=== PATIENT | male | born 1945 | race Caucasian/White ===

== ENCOUNTER 2016-07-13 | Outpatient (CLI) | payer SELFPAY | END 2016-07-13 10:36 | disposition EMS.NT ==

== ENCOUNTER 2019-05-05 10:10 | Outpatient (CLI) | payer MEDICARE, BC | END 2019-05-05 10:11 | disposition critical access hospital (66) | LOC: EMS 10:10 | PROVIDERS: ATTEND Surgery | DX: R40.20 Unspecified coma (principal) | CPT/HCPCS: A0425; A0427 ==

== ENCOUNTER 2019-05-05 10:26 | Emergency (ER) | payer MEDICARE, BC ==
[2019-05-05] MEDS ORDERED: SODIUM CHLORIDE 0.9% 1,000 ML IV ONE (10:34)
--- NOTE | 2019-05-05 10:35 | ED Physician Documentation ---
PD HPI SYNCOPE - Stated complaint Stated Complaint: ALOC - History obtained from History obtained from: Patient, Family, EMS - History of Present Illness Witnessed: Witnessed ( says he was sitting at table awaiting breakfast. Had not eaten nor drank fluids as yet. He then was not talking with his , so she turned to look at him and she noted pallor, and not talking. he tried to stir him but not responding. EMS called. says he started to respond some prior to their arrival. EMS found patient pale, hypotension and slow heart rate, that improved as they laid him down. He awoke fully enroute and is denying chest, abd pains nor headache.) Timing - onset: How many minutes ago (30), Today Duration: Minutes (improving as EMS laid him flatter, but noted his BP was low at 50s systolic initially and HR 45 initially.) Preceding symptoms: Light headed. No: Headache, Chest pain, Palpitations, Abdominal pain Associated symptoms: No: Seizure, Incontinant of urine, Headache, Dyspnea, Nausea / vomiting Contributing factors: No: Noxious stimulae, Just stood up (was sitting at table waiting for breakfast.) Injury occurred: No: Fell Similar symptoms before: No diagnosis ( says he has had 4 of these episodes the past several months. Usually just for few seconds No prior residual lightheaded nor dyspnea.) Recently seen: Emergency Dept. No: Clinic (no recent change in meds.) Review of Systems Constitutional: denies: Fever, Chills Nose: denies: Rhinorrhea / runny nose, Congestion Throat: reports: Sore throat Respiratory: denies: Cough GI: denies: Abdominal Pain, Nausea, Vomiting, Diarrhea : denies: Dysuria Musculoskeletal: denies: Neck pain, Back pain PD PAST MEDICAL HISTORY - Past Medical History Cardiovascular: Hypertension, High cholesterol Respiratory: None Neuro: None Endocrine/Autoimmune: None Psych: Anxiety - Present Medications Home Medications: Ambulatory Orders Medication Instructions Recorded Confirmed Acetaminophen [Tylenol Extra 500 mg ORAL QID PRN 05/05/19 05/05/19 Strength] Amitriptyline HCl 50 mg PO DAILY PM 05/05/19 05/05/19 Aspirin 81 mg PO DAILY 05/05/19 05/05/19 Atorvastatin Calcium 20 mg PO DAILY PM 05/05/19 05/05/19 Carbamazepine [Carbatrol] 200 mg ORAL BID 05/05/19 05/05/19 Carvedilol [Coreg] 25 mg PO BID 05/05/19 05/05/19 Cholecalciferol (Vitamin D3) 2,000 unit PO DAILY 05/05/19 05/05/19 [Vitamin D3] Citalopram Hydrobromide [Celexa] 20 mg ORAL DAILY 05/05/19 05/05/19 Doxazosin Mesylate 8 mg PO DAILY PM 05/05/19 05/05/19 Fenofibrate Nanocrystallized 145 mg PO DAILY PM 05/05/19 05/05/19 [Fenofibrate] Fluticasone/Salmeterol [Advair 1 inhaler ORAL BID 05/05/19 05/05/19 250-50 Diskus] Glipizide [Glipizide ER] 5 mg PO DAILY 05/05/19 05/05/19 Indomethacin 50 mg ORAL DAILY 05/05/19 05/05/19 Loratadine [Claritin] 10 mg PO DAILY 05/05/19 05/05/19 Losartan [Cozaar] 50 mg ORAL BID 05/05/19 05/05/19 Nitroglycerin [Nitroglycerin Patch 1 patch TOP DAILY 05/05/19 05/05/19 (0.4MG/HR)] Nitroglycerin [Nitrostat] 0.4 mg SL Q5MIN PRN MDD 3 05/05/19 05/05/19 amLODIPine [Norvasc] 5 mg PO DAILY 05/05/19 05/05/19 hydrALAZINE [Apresoline] 25 mg ORAL BID 05/05/19 05/05/19 hydroCHLOROthiazide 25 mg PO DAILY 05/05/19 05/05/19 [Hydrochlorothiazide] metFORMIN [Glucophage] 1,000 mg ORAL BID 05/05/19 05/05/19 - Allergies Allergies/Adverse Reactions: Allergies Allergy/AdvReac Type Severity Reaction Status Date / Time No Known Drug Allergies Allergy Verified 05/05/19 10:39 - Living Situation Living Situation: reports: With spouse/s.o. Living Arrangement: reports: At home - Social History Does the pt drink ETOH?: No Does the pt have substance abuse?: No - Family History Family history: denies: Sudden PD ED PE NORMAL - Vitals Vital signs reviewed: Yes - General General: Alert and oriented X 3, No acute distress, Well developed/nourished - HEENT HEENT: Atraumatic, Ears normal, Moist mucous membranes, Pharynx benign - Neck Neck: Supple, no meningeal sign, No adenopathy, No JVD - Cardiac Cardiac: RRR, No murmur - Respiratory Respiratory: Clear bilaterally - Abdomen Abdomen: Soft, Non tender - Back Back: No CVA TTP - Derm Derm: Normal color, Warm and dry - Extremities Extremities: No tenderness to palpate, Normal ROM s pain, No edema, No calf tenderness / cord - Neuro Neuro: Alert and oriented X 3, No motor deficit, Normal speech Results - Vitals Vitals: Vital Signs - 24 hr 05/05/19 05/05/19 05/05/19 10:32 10:42 11:26 Temperature 36.1 C L 36.4 C L Heart Rate 74 72 93 Heart Rate [ Sitting] Heart Rate [ Standing] Heart Rate [ Supine] Respiratory 22 24 14 Rate Blood Pressure 113/78 117/78 106/95 H Blood Pressure [Sitting] Blood Pressure [Standing] Blood Pressure [Supine] O2 Saturation 95 96 95 05/05/19 05/05/19 11:55 13:30 Temperature Heart Rate 84 Heart Rate [ 79 Sitting] Heart Rate [ 81 Standing] Heart Rate [ 73 Supine] Respiratory 24 Rate Blood Pressure 129/66 Blood Pressure 113/64 [Sitting] Blood Pressure 110/50 L [Standing] Blood Pressure 117/65 [Supine] O2 Saturation 97 Oxygen O2 Source Room air - EKG (time done) 10:38 Rate: Rate (enter#) (73) Rhythm: NSR [place]: Normal Intervals: Normal PA QRS: Normal Ischemia: Normal ST segments. No: ST elevation c/w ischemia, ST depression Computer interpretation: Agree with computer - Labs Labs: Laboratory Tests 05/05/19 05/05/19 05/05/19 10:36 10:36 10:36 WBC 5.9 RBC 3.53 L Hgb 11.3 L Hct 33.9 L MCV 96.0 H MCH 32.0 H MCHC 33.3 RDW 13.2 Plt Count 235 MPV 9.1 Neut # (Auto) 4.1 Lymph # (Auto) 1.3 L [place] # (Auto) 0.4 Eos # (Auto) 0.1 Baso # (Auto) 0.0 Absolute Nucleated RBC 0.00 Nucleated RBC % 0.0 Sodium 134 L Potassium 3.8 Chloride 95 L Carbon Dioxide 31 Anion Gap 8.0 BUN 15 Creatinine 0.7 Estimated GFR (MDRD) 111 Glucose 141 H Lactic Acid Calcium 8.9 Magnesium 1.5 L Total Bilirubin 0.7 AST 24 ALT 19 Alkaline Phosphatase 32 L Troponin I High Sens 2.8 B-Natriuretic Peptide Total Protein 6.1 L Albumin 3.7 Globulin 2.4 Albumin/Globulin Ratio 1.5 Lipase 24 05/05/19 05/05/19 10:36 11:01 WBC RBC Hgb Hct MCV MCH MCHC RDW Plt Count MPV Neut # (Auto) Lymph # (Auto) [place] # (Auto) Eos # (Auto) Baso # (Auto) Absolute Nucleated RBC Nucleated RBC % Sodium Potassium Chloride Carbon Dioxide Anion Gap BUN Creatinine Estimated GFR (MDRD) Glucose Lactic Acid 1.4 Calcium Magnesium Total Bilirubin AST ALT Alkaline Phosphatase Troponin I High Sens B-Natriuretic Peptide 43 Total Protein Albumin Globulin Albumin/Globulin Ratio Lipase PD MEDICAL DECISION MAKING - ED course Complexity details: reviewed results (seems possibly vasovagal. Does not seem very dehydrated, though says he does not drink much fluids.), re-evaluated patient (has remained awake and conversant. Discussed normal labs/ECG, and potential home vs. OBS. He prefers going home. ), considered differential, d/w patient, d/w family Departure - Departure Disposition: 01 Home, Self Care Clinical Impression: Transient hypotension Episode of syncope Qualifiers: Syncope type: unspecified Qualified Code(s): R55 - Syncope and collapse Condition: Stable Record reviewed to determine appropriate education?: Yes Instructions: ED Fainting Unkn Cause Comments: Stay well-hydrated. Continue usual medications. I would suggest having some glass of water or juice when you first wake up until you get breakfast. There is suggestion since your fainting episodes have seemed to occur same time a day in the morning. Otherwise follow-up with your primary care. They might consider having you wear a heart monitor to see if you have irregular heart beats or rhythms periodically. Return if repeat episodes over the next couple of days or other symptoms develop. Discharge Date/Time: 05/05/19 13:46
[2019-05-05 10:43] LABS: BASOPHILS % (AUTO) 0.3 %; EOSINOPHILS # (AUTO) 0.1 10^3/uL (0.0-0.7); EOSINOPHILS % (AUTO) 1.2 %; HGB - HEMOGLOBIN 11.3 g/dL (14.0-18.0); LYMPHOCYTES # (AUTO) 1.3 10^3/uL (1.5-3.5); LYMPHOCYTES % (AUTO) 21.5 %; MEAN CORPUSCULAR HGB CONC 33.3 g/dL (32.0-36.0); MEAN PLATELET VOLUME 9.1 fL (7.4-11.4); MONOCYTES # (AUTO) 0.4 10^3/uL (0.0-1.0); MONOCYTES % (AUTO) 7.4 %; NEUTROPHILS # (AUTO) 4.1 10^3/uL (1.5-6.6); NEUTROPHILS % (AUTO) 69.3 %; PLT - PLATELET COUNT 235 10^3/uL (130-450); RED BLOOD COUNT 3.53 10^6/uL (4.70-6.10); RED CELL DISTRIBUTION WIDTH 13.2 % (12.0-15.0); WHITE BLOOD COUNT 5.9 x10^3/uL (4.8-10.8)
[2019-05-05 11:04] LABS: ALBUMIN 3.7 g/dL (3.2-5.5); ALBUMIN/GLOBULIN RATIO 1.5 (1.0-2.2); BILIRUBIN,TOTAL 0.7 mg/dL (0.2-1.0); CALCIUM 8.9 mg/dL (8.5-10.3); CREATININE 0.7 mg/dL (0.6-1.2); MAGNESIUM 1.5 mg/dL (1.7-2.8); TOTAL PROTEIN 6.1 g/dL (6.7-8.2)
--- NOTE | 2019-05-05 11:22 | XRAY Report ---
Reason: syncope Procedure Date: 05/05/2019 Accession Number: [id number] / [id number] Procedure: XR - Chest 1 View X-Ray CPT Code: 98586 Final Report FULL RESULT: EXAM: CHEST RADIOGRAPHY EXAM DATE: 05/05/2019 10:57 AM. CLINICAL HISTORY: Syncope. COMPARISON: None available. TECHNIQUE: 1 view. FINDINGS: Lungs/Pleura: There are low lung volumes with mild bibasilar atelectasis and central bronchovascular crowding. No pneumothorax or large pleural effusion evident. Mediastinum: The cardiac silhouette is mostly obscured. There is atherosclerotic calcification in the aortic arch. Other: Sternal wires are present. Surgical clips in the right upper abdomen. IMPRESSION: Low lung volumes, no acute infiltrate or consolidation evident. RADIA
[2019-05-05 13:35] VITALS: BP 129/66
== END 2019-05-05 13:46 | disposition home or self-care (01) ==
LOC: EDUNIT# → ED 10:26
DX: I95.89 Other hypotension (principal); R55 Syncope and collapse; I10 Essential (primary) hypertension; Z79.82 Long term (current) use of aspirin
CPT/HCPCS: 36415; 71045; 80053; 83605; 83690; 83735; 83880; 84484; 85025; 93005; 96360; 99284

== ENCOUNTER 2019-07-21 22:38 | Outpatient (CLI) | payer MEDICARE, BC | END 2019-07-21 23:59 | disposition critical access hospital (66) | LOC: EMS 22:38 | PROVIDERS: ATTEND Surgery | DX: R06.02 Shortness of breath (principal); R47.9 Unspecified speech disturbances; R00.0 Tachycardia, unspecified | CPT/HCPCS: A0425; A0427 ==

== ENCOUNTER 2019-07-21 22:50 | Emergency (ER) | payer MEDICARE, BC ==
[2019-07-22 01:12] LABS: BASOPHILS % (AUTO) 0.2 %; HGB - HEMOGLOBIN 12.1 g/dL (14.0-18.0); LYMPHOCYTES # (AUTO) 0.7 10^3/uL (1.5-3.5); MEAN CORPUSCULAR HEMOGLOBIN 33.3 pg (27.0-31.0); MEAN CORPUSCULAR HGB CONC 34.5 g/dL (32.0-36.0); MEAN CORPUSCULAR VOLUME 96.7 fL (80.0-94.0); MEAN PLATELET VOLUME 8.9 fL (7.4-11.4); MONOCYTES # (AUTO) 0.5 10^3/uL (0.0-1.0); MONOCYTES % (AUTO) 4.7 %; NEUTROPHILS # (AUTO) 9.7 10^3/uL (1.5-6.6); NEUTROPHILS % (AUTO) 88.6 %; PLT - PLATELET COUNT 348 10^3/uL (130-450); RED BLOOD COUNT 3.63 10^6/uL (4.70-6.10); RED CELL DISTRIBUTION WIDTH 12.2 % (12.0-15.0)
[2019-07-22 01:25] LABS: ALBUMIN 3.8 g/dL (3.2-5.5); ALBUMIN/GLOBULIN RATIO 1.7 (1.0-2.2); BILIRUBIN,TOTAL 0.8 mg/dL (0.2-1.0); CREATININE 0.5 mg/dL (0.6-1.2); TOTAL PROTEIN 6.1 g/dL (6.7-8.2)
--- NOTE | 2019-07-22 02:37 | ED Physician Documentation ---
History of Present Illness - Stated complaint Stated Complaint: LETHARGIC - Chief complaint Chief Complaint: Resp - History obtained from History obtained from: Family (spouse) - History of Present Illness Timing: How many days ago (3-4) Improved by: improved after fluids and repletion of electrolye abnormalities inpt. IH Worsened by: no apparent exacerbating factors - Additonal information Additional information: d/c from inpatient [facility]H yesterday, was primarily there for AMS which improved after correction of electrolyte abnormalities including hyponatremia and hypokalemia. BIBA tonight for decreasing responsiveness. also says he has been drooling. she also says he had been c/o urge to urinate without significant UO (earlier today). patient had neck surgery last month, has not had any prescription pain medication for at least 2 weeks Review of Systems Unable to obtain: AMS (limited to information provided by ) Constitutional: denies: Fever Respiratory: reports: Cough. denies: Dyspnea : reports: Unable to Void (possibly, per ) PD PAST MEDICAL HISTORY - Past Medical History Past Medical History: Yes Cardiovascular: Hypertension, High cholesterol Respiratory: None Neuro: None Endocrine/Autoimmune: None GI: GERD : Benign prostate hypertrophy HEENT: None Psych: Anxiety Musculoskeletal: Osteoarthritis - Past Surgical History Past Surgical History: Yes General: Cholecystectomy Ortho: Knee replacement, Spine surgery Cardiovascular: CABG, Cardiac catheterization Derm: Skin cancer surgery - Present Medications Home Medications: Ambulatory Orders Medication Instructions Recorded Confirmed Acetaminophen [Tylenol Extra 500 mg ORAL QID PRN 05/05/19 05/05/19 Strength] Amitriptyline HCl 50 mg PO DAILY PM 05/05/19 05/05/19 Aspirin 81 mg PO DAILY 05/05/19 05/05/19 Atorvastatin Calcium 20 mg PO DAILY PM 05/05/19 05/05/19 Carvedilol [Coreg] 25 mg PO BID 05/05/19 05/05/19 Cholecalciferol (Vitamin D3) 2,000 unit PO DAILY 05/05/19 05/05/19 [Vitamin D3] Citalopram Hydrobromide [Celexa] 20 mg ORAL DAILY 05/05/19 05/05/19 Doxazosin Mesylate 8 mg PO DAILY PM 05/05/19 05/05/19 Fenofibrate Nanocrystallized 145 mg PO DAILY PM 05/05/19 05/05/19 [Fenofibrate] Fluticasone/Salmeterol [Advair 1 inhaler ORAL BID 05/05/19 05/05/19 250-50 Diskus] Glipizide [Glipizide ER] 5 mg PO DAILY 05/05/19 05/05/19 Indomethacin 50 mg ORAL DAILY 05/05/19 05/05/19 Loratadine [Claritin] 10 mg PO DAILY 05/05/19 05/05/19 Losartan [Cozaar] 50 mg ORAL BID 05/05/19 05/05/19 Nitroglycerin [Nitroglycerin Patch 1 patch TOP DAILY 05/05/19 05/05/19 (0.4MG/HR)] Nitroglycerin [Nitrostat] 0.4 mg SL Q5MIN PRN MDD 3 05/05/19 05/05/19 amLODIPine [Norvasc] 5 mg PO DAILY 05/05/19 05/05/19 carBAMazepine [Carbatrol] 200 mg ORAL BID 05/05/19 05/05/19 hydrALAZINE [Apresoline] 25 mg ORAL BID 05/05/19 05/05/19 hydroCHLOROthiazide 25 mg PO DAILY 05/05/19 05/05/19 [Hydrochlorothiazide] metFORMIN [Glucophage] 1,000 mg ORAL BID 05/05/19 05/05/19 - Allergies Allergies/Adverse Reactions: Allergies Allergy/AdvReac Type Severity Reaction Status Date / Time No Known Drug Allergies Allergy Verified 07/23/19 15:02 - Social History Does the pt smoke?: No Smoking Status: Never smoker Does the pt drink ETOH?: No Does the pt have substance abuse?: No - Immunizations Immunizations are current?: Yes PD ED PE NORMAL - Vitals Vital signs reviewed: Yes - General General: No acute distress, Well developed/nourished, Other (sleeping, drowsy, awakens briefly to repeated verbal with tactile stimulus) - HEENT HEENT: Other (tacky/pasty mucous membranes) - Neck Neck: Supple, no meningeal sign - Cardiac Cardiac: RRR, No murmur - Respiratory Respiratory: No respiratory distress, Clear bilaterally - Abdomen Abdomen: Normal bowel sounds, Soft, Non tender, Non distended - Derm Derm: Normal color, Warm and dry - Neuro Eye Opening: To Voice Motor: Obeys Commands Verbal: Confused GCS Score: 13 - Free text exam Free text exam: old anterior chest wall echymosis ( indicates this has been since neck surgery last month) Results - Vitals Vitals: Oxygen O2 Source Room air Oxygen Flow Rate 2 - Labs Labs: Laboratory Tests 07/22/19 07/22/19 07/22/19 01:06 01:06 03:30 WBC 11.0 H RBC 3.63 L Hgb 12.1 L Hct 35.1 L MCV 96.7 H MCH 33.3 H MCHC 34.5 RDW 12.2 Plt Count 348 MPV 8.9 Neut # (Auto) 9.7 H Lymph # (Auto) 0.7 L [place] # (Auto) 0.5 Eos # (Auto) 0.0 Baso # (Auto) 0.0 Absolute Nucleated RBC 0.00 Nucleated RBC % 0.0 Sodium 134 L Potassium 3.7 Chloride 87 L Carbon Dioxide 36 H Anion Gap 11.0 BUN 29 H Creatinine 0.5 L Estimated GFR (MDRD) 163 Glucose 195 H Calcium 9.0 Total Bilirubin 0.8 AST 39 ALT 36 Alkaline Phosphatase 43 Total Protein 6.1 L Albumin 3.8 Globulin 2.3 Albumin/Globulin Ratio 1.7 Lipase 53 H Urine Color YELLOW Urine Clarity CLEAR Urine pH 6.0 Ur Specific [place] >=1.030 H Urine Protein 100 H Urine Glucose (UA) 250 H Urine Ketones NEGATIVE Urine Occult Blood NEGATIVE Urine Nitrite NEGATIVE Urine Bilirubin NEGATIVE Urine Urobilinogen 1 (NORMAL) Ur Leukocyte Esterase NEGATIVE Urine RBC None Seen Urine WBC 0-3 Ur Squamous Epith Cells NONE SEEN Urine Bacteria Rare Urine Casts 6-10 Hyaline Casts Urine Mucus Marked Strands Ur Microscopic Review INDICATED Urine Culture Comments NOT INDICATED - Rads (name of study) CT head Radiology: Prelim report reviewed, See rad report cxr Radiology: Prelim report reviewed, See rad report PD MEDICAL DECISION MAKING - ED course Complexity details: reviewed old records, reviewed results, re-evaluated patient, considered differential, d/w family ED course: discharge summary from faxed and reviewed. no significant findings on tonights testing including bladder scan (not in urinary retention, and has urine in bladder, sample obtained by I+O cath to avoid contamination), CT head, cxr, and blood tests. he was rehydrated with 1L NS via IV and had moist mucous membranes on reevaluation. he was mildly hypoxic on room air, but this improved with albuterol neb (from 86% to 94% room air). additionally, on reevaluation prior to discharge, says she feels comfortable taking him home, indicates he is closer to baseline mental state. he did become more awake and alert late in stay, and with firm instruction, he followed commands to transfer from stretcher to wheelchair. Departure - Departure Disposition: 01 Home, Self Care Clinical Impression: Altered mental status Condition: Good Instructions: ED Altered Loc Follow-Up: Sreedhar Albarado MD [Primary Care Provider] - Discharge Date/Time: 07/22/19 06:09
--- NOTE | 2019-07-22 03:31 | CT Report ---
Reason: AMS Procedure Date: 07/22/2019 Accession Number: [id number] / [id number] Procedure: CT - HEAD WO CPT Code: Final Report FULL RESULT: EXAM: CT HEAD EXAM DATE: 07/22/2019 03:12 AM. CLINICAL HISTORY: Altered mental status. COMPARISON: None. TECHNIQUE: Multiaxial CT images were obtained from the foramen magnum to the vertex. Reformats: Sagittal and coronal. IV contrast: None. In accordance with CT protocol optimization, one or more of the following dose reduction techniques were utilized for this exam: automated exposure control, adjustment of mA and/or KV based on patient size, or use of iterative reconstructive technique. FINDINGS: Parenchyma: No intraparenchymal hemorrhage. No evidence of mass, midline shift, or CT findings of infarction. Salazar-white differentiation is distinct. There is mild chronic microvascular change in the deep white matter. Extraaxial Spaces: There is mild age appropriate generalized cerebral volume loss. No subdural or epidural collections identified. Ventricles: No hydrocephalus. Sinuses and Orbits: Imaged paranasal sinuses, orbits, and mastoids show no significant abnormality. Bones: No evidence of fracture or calvarial defect. Other: None. IMPRESSION: 1. No acute intracranial abnormality. 2. No intracranial mass, mass-effect, or hydrocephalus. 3. Age-appropriate senescent changes. RADIA
--- NOTE | 2019-07-22 03:32 | XRAY Report ---
Reason: dyspnea Procedure Date: 07/22/2019 Accession Number: [id number] / [id number] Procedure: XR - Chest 1 View X-Ray CPT Code: 74309 Final Report FULL RESULT: EXAM: CHEST RADIOGRAPHY EXAM DATE: 07/22/2019 03:15 AM. CLINICAL HISTORY: Dyspnea. COMPARISON: CHEST 1 VIEW 05/05/2019 10:39 AM. TECHNIQUE: 1 view. FINDINGS: Lungs/Pleura: Low lung volumes. No focal infiltrate, effusion, or pneumothorax. Mediastinum: Stable postoperative changes. Other: None. IMPRESSION: Low lung volumes. No evidence of acute cardiopulmonary disease. RADIA
[2019-07-22 03:41] LABS: GLUCOSE, URINE (UA) 250 mg/dL (NEGATIVE); KETONES,URINE (UA) NEGATIVE (NEGATIVE); LEUKOCYTE ESTERASE, URINE NEGATIVE (NEGATIVE); NITRITE,URINE NEGATIVE (NEGATIVE); OCCULT BLOOD,URINE NEGATIVE (NEGATIVE); PROTEIN,URINE 100 mg/dL (NEGATIVE); UROBILINOGEN,URINE 1 (NORMAL) E.U./dL (NORMAL)
[2019-07-22 03:45] LABS: BILIRUBIN,URINE NEGATIVE (NEGATIVE); CLARITY,URINE CLEAR (CLEAR); ICTOTEST,URINE NEGATIVE
[2019-07-22] MEDS ORDERED: SODIUM CHLORIDE 0.9% 1,000 ML IV STA (03:48)
[2019-07-22 03:49] LABS: BACTERIA,URINE Rare /HPF (None Seen); CASTS, URINE 6-10 Hyaline Casts /LPF; MUCUS,URINE Marked Strands; RBC,URINE None Seen /HPF (0-5); SQUAMOUS EPITHELIAL CELL,UR NONE SEEN (<= Few)
[2019-07-22] MEDS ORDERED: ALBUTEROL NEB 2.5 MG/3 ML INH STA (05:05)
[2019-07-22 05:42] VITALS: BP 129/74
== END 2019-07-22 06:09 | disposition home or self-care (01) ==
LOC: EDUNIT# → ED 22:50
DX: R41.82 Altered mental status, unspecified (principal); I10 Essential (primary) hypertension
CPT/HCPCS: 36415; 51798; 70450; 71045; 80053; 81001; 81003; 83690; 85025; 87086; 94640; 96360; 99285

== ENCOUNTER 2019-07-23 14:33 | Outpatient (CLI) | payer MEDICARE, BC | END 2019-07-23 14:34 | disposition critical access hospital (66) | LOC: EMS 14:33 | PROVIDERS: ATTEND Surgery | DX: R41.82 Altered mental status, unspecified (principal); R47.9 Unspecified speech disturbances | CPT/HCPCS: A0425; A0429 ==

== ENCOUNTER 2019-07-23 14:50 | Emergency (ER) | payer MEDICARE, BC ==
--- NOTE | 2019-07-23 15:50 | ED Physician Documentation ---
History of Present Illness - Stated complaint Stated Complaint: DIFFICULTY SPEAKING - Chief complaint Chief Complaint: Neuro - History obtained from History obtained from: Family - History of Present Illness Timing: How many days ago (5) - Additonal information Additional information: Patient comes emergency department via EMS for chief complaint of altered mental status. states that the patient has not been acting like himself for the past several days but especially, for the last 4 days. Patient was just admitted at [facility] last week forConstipation and altered mental status and work-up was apparently unremarkable there. Patient was discharged 3 days ago and on the day of discharge, patient's states she noticed that the patient was just sitting in bed drooling. Previously, he had been requesting to go home every time he saw his . states that the patient was discharged on the day she found him to be drooling and that he has gone in and out of that sort of state ever since. He has periods where when asked questions, he will just grind in response. states that today, the patient has been grunting all day and does not really seem to be talking much. She has not noticed any other focal deficits. The patient has no known history of dementia or stroke, though from history taking, it seems the patient may have had some degree of cognitive compromise. does note that she did bring the patient to the emergency department here the day after he was discharged to [place], where he had a full work-up including head CT, which was unremarkable. Discharge diagnosis was "altered mental status".Patient's primary care physician is Dr. Albarado. Patient is not able to offer any information at this time. He states only "I want to go home". Review of Systems Unable to obtain: Confused PD PAST MEDICAL HISTORY - Past Medical History Cardiovascular: Hypertension, High cholesterol Respiratory: None Neuro: None Endocrine/Autoimmune: None GI: GERD : Benign prostate hypertrophy HEENT: None Psych: Anxiety Musculoskeletal: Osteoarthritis - Past Surgical History Past Surgical History: Yes General: Cholecystectomy Ortho: Knee replacement, Spine surgery Cardiovascular: CABG, Cardiac catheterization Derm: Skin cancer surgery - Present Medications Home Medications: Ambulatory Orders Medication Instructions Recorded Confirmed Acetaminophen [Tylenol Extra 500 mg ORAL QID PRN 05/05/19 05/05/19 Strength] Amitriptyline HCl 50 mg PO DAILY PM 05/05/19 05/05/19 Aspirin 81 mg PO DAILY 05/05/19 05/05/19 Atorvastatin Calcium 20 mg PO DAILY PM 05/05/19 05/05/19 Carvedilol [Coreg] 25 mg PO BID 05/05/19 05/05/19 Cholecalciferol (Vitamin D3) 2,000 unit PO DAILY 05/05/19 05/05/19 [Vitamin D3] Citalopram Hydrobromide [Celexa] 20 mg ORAL DAILY 05/05/19 05/05/19 Doxazosin Mesylate 8 mg PO DAILY PM 05/05/19 05/05/19 Fenofibrate Nanocrystallized 145 mg PO DAILY PM 05/05/19 05/05/19 [Fenofibrate] Fluticasone/Salmeterol [Advair 1 inhaler ORAL BID 05/05/19 05/05/19 250-50 Diskus] Glipizide [Glipizide ER] 5 mg PO DAILY 05/05/19 05/05/19 Indomethacin 50 mg ORAL DAILY 05/05/19 05/05/19 Loratadine [Claritin] 10 mg PO DAILY 05/05/19 05/05/19 Losartan [Cozaar] 50 mg ORAL BID 05/05/19 05/05/19 Nitroglycerin [Nitroglycerin Patch 1 patch TOP DAILY 05/05/19 05/05/19 (0.4MG/HR)] Nitroglycerin [Nitrostat] 0.4 mg SL Q5MIN PRN MDD 3 05/05/19 05/05/19 amLODIPine [Norvasc] 5 mg PO DAILY 05/05/19 05/05/19 carBAMazepine [Carbatrol] 200 mg ORAL BID 05/05/19 05/05/19 hydrALAZINE [Apresoline] 25 mg ORAL BID 05/05/19 05/05/19 hydroCHLOROthiazide 25 mg PO DAILY 05/05/19 05/05/19 [Hydrochlorothiazide] metFORMIN [Glucophage] 1,000 mg ORAL BID 05/05/19 05/05/19 - Allergies Allergies/Adverse Reactions: Allergies Allergy/AdvReac Type Severity Reaction Status Date / Time No Known Drug Allergies Allergy Verified 07/23/19 15:02 - Social History Does the pt smoke?: No Smoking Status: Never smoker Does the pt drink ETOH?: No Does the pt have substance abuse?: No - Immunizations Immunizations are current?: Yes PD ED PE NORMAL - Vitals Vital signs reviewed: Yes - General General: No acute distress, Other (Patient is confused, and mildly agitated.) - HEENT HEENT: PERRL - Neck Neck: Supple, no meningeal sign - Cardiac Cardiac: RRR, No murmur - Respiratory Respiratory: Clear bilaterally - Abdomen Abdomen: Soft, Non tender, Non distended - Derm Derm: Warm and dry - Extremities Extremities: No deformity - Neuro Neuro: Other (Patient is awake, but does not answer questions. He occasionally verbalizes, pointing off in no particular direction, and states occasionally "I want to go home". Otherwise, he just makes unintelligible grunting sounds.) - Psych Psych: Normal mood, Normal affect Results - Vitals Vitals: Vital Signs - 24 hr 07/23/19 07/23/19 07/23/19 15:03 18:06 19:12 Temperature 36.9 C 36.7 C Heart Rate 91 88 94 Respiratory 26 H 30 H 19 Rate Blood Pressure 136/72 H 173/94 H 152/97 H O2 Saturation 98 91 L 94 Oxygen O2 Source Room air PD MEDICAL DECISION MAKING - ED course Complexity details: reviewed old records, considered differential, d/w family ED course: Patient was evaluated by myself in the emergency department. He was found to be alert but not coherent. I reviewed his records from his recent visit which ended yesterday morning, and found that work-up was unremarkable. I felt that given that the patient had had altered mental status last week and continued to have altered mental status now with full negative work-up, I felt the patient most likely had some degree of undiagnosed dementia. I did order laboratory studies and urinalysis, but after 2 hours, I found there were still no results back. I spoke with nursing staff, who reported that the patient's had refused blood draw and stated they would rather just go to [facility], where the patient's primary care physician admits. I went and spoke with the patient's who stated that there must been some kind of misunderstanding and that she did not refuse blood draw. However, she did state that she would rather go to [facility] where the patient was just admitted and where the patient's primary care physician admits. We discussed that the patient has already had an extensive work-up for her symptoms and as yet, work-up has been negative. Patient is already seen social work as an inpatient and it has been discussed with the that the patient either needs to have home nursing assistance or The possibility of assisted living/rehab admission should be considered. had opted for home health assistance at that time, and states that it was the home health nurse who insisted that the patient come to the hospital today, even though she had only seen the patient for the first time. I did discuss at length with the patient's that at this point in time, there is no evidence of an acute cause of the patient's altered mental status. I have discussed with her that it is very possible the patient has underlying dementia and that the recent physical stress, as well as [facility] an unfamiliar place for a prolonged amount of time, it has caused some degree of dementia and exacerbation.The would like to take the patient home, and I feel this is reasonable. He has been hemodynamically stable here and is less agitated than originally on arrival. We have discussed management of the symptoms at home, the need for follow-up with Dr. Albarado, and the usual indications for return. Departure - Departure Disposition: 01 Home, Self Care Clinical Impression: Altered mental status Qualifiers: Altered mental status type: unspecified Qualified Code(s): R41.82 - Altered mental status, unspecified Condition: Fair Instructions: ED Confusion Comments: The work-up from yesterday morning has been reviewed, and no concerning findings were found on labs or CT scan. It is very likely that Mr. Ragsdale has some underlying dementia which has not been formally diagnosed yet. It is not uncommon for this to flareup when there is a physical stress or a change in surroundings. He has been stable here in the emergency department, and at this point, you have opted to be discharged and follow-up with Dr. Albarado and the home health team, as planned. This is a good plan for now. If Mr. Ragsdale develops weakness on one side of his body, drooling, or high fevers, you should return to the emergency department without delay. Discharge Date/Time: 07/23/19 19:36
[2019-07-23 19:13] VITALS: BP 152/97
== END 2019-07-23 19:36 | disposition home or self-care (01) ==
LOC: ED 14:50
DX: R41.82 Altered mental status, unspecified (principal); I10 Essential (primary) hypertension
CPT/HCPCS: 80053; 83690; 83880; 84443; 85025; 85610; 99281; 99283

== ENCOUNTER 2019-07-24 16:33 | Outpatient (CLI) | payer MEDICARE, BC | END 2019-07-24 23:59 | disposition E | LOC: EMS 16:33 | PROVIDERS: ATTEND Surgery | DX: I46.9 Cardiac arrest, cause unspecified (principal) | CPT/HCPCS: A0425; A0429 ==